=== PATIENT | female | born 1995 | race Caucasian/White ===

== ENCOUNTER 2017-01-06 19:51 | Emergency (ER) | payer OTHER ==
[~2017-01-06] VITALS: Ht 160 cm; Wt 55.1 kg
[~2017-01-06 19:51] MED LIST: BIRTH CONTROL PO; IBUP-1222 PO
[2017-01-06] MEDS ORDERED: ALBUTEROL/IPRATROPIUM 2.5MG/0.5MG, 3 ML ONE (20:14)
[2017-01-06] MEDS ORDERED: ALBUTEROL/IPRATROPIUM 2.5MG/0.5MG, 3 ML NPPB ONE (20:30)
[2017-01-06 21:11] LABS: RAPID INFLUENZA A Negative (Negative); RAPID INFLUENZA B Negative (Negative)
[2017-01-06 21:26] VITALS: BP 122/82
== END 2017-01-06 21:31 | disposition home or self-care (01) ==
LOC: ED 21:25
DX: J20.9 Acute bronchitis, unspecified (principal)
CPT/HCPCS: 71010; 87400; 94640; 99285; J7512; J7620

== ENCOUNTER 2017-09-02 22:19 | Emergency (ER) | payer OTHER ==
[~2017-09-02] VITALS: Ht 162.6 cm; Wt 54.9 kg
[2017-09-02] MEDS ORDERED: SODIUM CHLORIDE FLUSH 10ML SYR IVF ONE (23:00)
[2017-09-02] MEDS ORDERED: SODIUM CHLORIDE 0.9% 1,000ML IVBOLUS ONE (23:00)
[2017-09-03 00:10] LABS: HEMATOCRIT 32.9 % (34.6-47.8); HEMOGLOBIN 10.8 g/dL (11.7-16.4); WHITE BLOOD COUNT 13.3 x10^3/uL (4.5-13.2)
[2017-09-03 00:13] VITALS: BP 124/79
[2017-09-03 00:13] LABS: ASPARTATE AMINO TRANSFERASE 16 U/L (15-37); BLOOD UREA NITROGEN 13 mg/dL (7-18)
== END 2017-09-03 01:03 | disposition home or self-care (01) ==
LOC: ED 23:59
DX: R55 Syncope and collapse (principal)
CPT/HCPCS: 36415; 80053; 84703; 85025; 93005; 96360; 96361; 99285; J7030